=== PATIENT | male | born 1985 | race Caucasian/White ===

== ENCOUNTER → 2021-11-23 | Outpatient (CLI) | payer BC ==
--- NOTE | 2021-11-23 16:41 | Diagnostic Imaging Report ---
INDICATION: Palpable lump behind the right nipple. EXAMINATION: Sonographic interrogation of the retroareolar right breast was performed. FINDINGS: There is an area of somewhat ill-defined hypoechogenicity measuring 2.7 x 1.2 x 2.5 cm. This does appear to be more prominent than the retroareolar left breast which was obtained for comparison purposes. This may represent an area of gynecomastia. No other abnormalities are seen. IMPRESSION: Probable gynecomastia in the area of palpable abnormality. Diagnostic mammography may be useful for further evaluation if this persists. ACR BI-RADS Category 2: Benign findings. Result letter will be mailed to the patient. Note: At least 10% of breast cancer is not imaged by mammography. Dictated on workstation # [id number]
== END ==
LOC: RAD 13:45
PROVIDERS: ATTEND Nurse Practitioner Family
DX: N63.10 Unspecified lump in the right breast, unspecified quadrant (principal); I10 Essential (primary) hypertension; E66.8 Other obesity
CPT/HCPCS: 76641